=== PATIENT | male | born 1955 | race Caucasian/White ===

== ENCOUNTER → 2019-03-08 07:56 | Outpatient (BNVA) | payer SELFPAY | PROVIDERS: Family Provider Registered Nurse; PCP Registered Nurse; Visit Provider Registered Nurse | DX: E07.9 Disorder of thyroid, unspecified (principal) | CPT/HCPCS: 36415; 84443 ==

== ENCOUNTER → 2020-02-04 09:05 | Outpatient (BNVA) | payer SELFPAY | PROVIDERS: Family Provider Registered Nurse; PCP Registered Nurse; Visit Provider Registered Nurse | DX: E03.9 Hypothyroidism, unspecified (principal) | CPT/HCPCS: 80053; 80061; 84443; 85025 ==

== ENCOUNTER → 2020-05-27 08:24 | Outpatient (BNVA) | payer SELFPAY | PROVIDERS: Family Provider Registered Nurse; PCP Registered Nurse; Visit Provider Dermatology | DX: Z01.89 Encounter for other specified special examinations (principal) | CPT/HCPCS: 82607; 99398 ==

== ENCOUNTER → 2020-09-09 13:12 | Outpatient (BNVA) | payer OTHER, SELFPAY | PROVIDERS: Family Provider Registered Nurse; PCP Registered Nurse; Visit Provider Registered Nurse | DX: Z20.822 Contact with and (suspected) exposure to COVID-19 (principal) | CPT/HCPCS: 87635 ==

== ENCOUNTER → 2021-05-12 08:30 | Outpatient (BNVA) | payer OTHER, SELFPAY | PROVIDERS: Family Provider Registered Nurse; PCP Registered Nurse; Visit Provider Registered Nurse | DX: Z12.5 Encounter for screening for malignant neoplasm of prostate (principal); E03.9 Hypothyroidism, unspecified | CPT/HCPCS: 84443; G0103 ==

== ENCOUNTER → 2022-08-04 08:11 | Outpatient (BNVA) | payer MEDICARE, SELFPAY | PROVIDERS: Family Provider Registered Nurse; PCP Registered Nurse; Visit Provider Registered Nurse | DX: F41.9 Anxiety disorder, unspecified (principal); R53.83 Other fatigue; N40.0 Benign prostatic hyperplasia without lower urinary tract symptoms | CPT/HCPCS: 80053; 80061; 82306; 82607; 84153; 84403; 84443; 85025 ==

== ENCOUNTER 2023-04-27 09:30 | Outpatient (CLI) | payer MEDICARE, SELFPAY | END 2023-04-27 09:31 | disposition home or self-care (01) | LOC: SLEEP 04-28 12:05 | PROVIDERS: Family Provider Registered Nurse; PCP Registered Nurse; Visit Provider Registered Nurse | DX: G47.33 Obstructive sleep apnea (adult) (pediatric) (principal) | CPT/HCPCS: G0399 ==

== ENCOUNTER → 2023-05-12 08:56 | Outpatient (BNVA) | payer MEDICARE, SELFPAY | PROVIDERS: Family Provider Registered Nurse; PCP Registered Nurse; Visit Provider Registered Nurse | DX: N40.1 Benign prostatic hyperplasia with lower urinary tract symptoms (principal); R39.11 Hesitancy of micturition; E03.9 Hypothyroidism, unspecified; Z00.00 Encounter for general adult medical examination without abnormal findings; Z12.11 Encounter for screening for malignant neoplasm of colon; G47.33 Obstructive sleep apnea (adult) (pediatric); Z12.5 Encounter for screening for malignant neoplasm of prostate | CPT/HCPCS: 80053; 84153; 84443; 85025 ==

== ENCOUNTER → 2023-05-31 09:15 | Outpatient (BNVA) | payer MEDICARE, SELFPAY | PROVIDERS: Family Provider Registered Nurse; PCP Registered Nurse; Referring Provider Registered Nurse; Visit Provider Surgery | DX: Z12.11 Encounter for screening for malignant neoplasm of colon (principal) | CPT/HCPCS: 99024; 99203 ==

== ENCOUNTER → 2023-08-25 09:59 | Outpatient (BNVA) | payer MEDICARE, SELFPAY | PROVIDERS: Family Provider Registered Nurse; PCP Registered Nurse; Visit Provider Registered Nurse | DX: R53.83 Other fatigue (principal) | CPT/HCPCS: 84403; 85025; 86003; 86008; 86618; 86666; 86757 ==

== ENCOUNTER 2023-09-29 08:29 | Day surgery (SDC) | payer MEDICARE, SELFPAY ==
[2023-09-29 08:38] VITALS: BP 122/77; PULSE 60; RESP 16; TEMP 36.3; O2SAT 97
[2023-09-29 08:39] VITALS: BMI 28.1
--- NOTE | 2023-09-29 08:40 | W.PM.OPSFHP ---
Same Day Surgery H&P Indication for Procedure/HPI DATE OF PROCEDURE: September 29, 2023 CHIEF COMPLAINT/INDICATIONFOR SURGICAL PROCEDURE: need for screening colonoscopy PREOP DIAGNOSIS: need for screening colonoscopy PLANNED PROCEDURE: Operation Date: 09/29/23 09:35 Proposed Procedures p Colonoscopy 35588, G0121, Z12.11(Not Applicable) - Gianni Sena MD Medications/Allergies* Home Medications Medication Instructions Recorded Confirmed Type escitalopram oxalate 10 mg tablet 10 mg PO DAILY 09/27/23 09/29/23 History levothyroxine 112 mcg tablet 112 mcg PO DAILY 09/27/23 09/29/23 History tadalafil 5 mg tablet 5 mg PO DAILY 09/27/23 09/27/23 History Allergies/Adverse Reactions Allergy/AdvReac Type Severity Reaction Status Date / Time No Known Allergies Allergy Verified 05/31/23 09:19 Pertinent History/Comorbid Conditions* Medical History (Updated 08/04/22 @ 20:58 by MACEY Patterson) Hypothyroidism (acquired) Obesity (BMI 30-39.9) Family History (Updated 03/08/19 @ 08:17 by Dana Bernardo LPN) Heart disease Father Lung cancer Father Respiratory disease Mother Cancer Sister Social History Smoking and tobacco/nicotine status: never used tobacco/nicotine Alcohol intake: current Alcohol intake frequency: holidays/special occasions only Substance/Drug Use: never Lives independently: No Household members: spouse Housing: House Marital status: Current occupational status: employed Sexually active: Yes Do you think of yourself as: Straight/Heterosexual Current gender identity: Male Pertinent Exam Findings alert, oriented x 3, clear to auscultation bilaterally and regular rate & rhythm Recommendations Surgery/Procedure today Coding Level of Care Code Acute Code for Chg Fwd
--- NOTE | 2023-09-29 08:44 | ANES.PREANE2 ---
Pre-Anesthetic Assessment Height/Weight: Height 1.8 m Weight 91.626 kg Temp Pulse Resp BP Pulse Ox O2 Del Method 97.3 F L 60 16 122/77 97 Room Air 09/29/23 08:38 09/29/23 08:38 09/29/23 08:38 09/29/23 08:38 09/29/23 08:38 09/29/23 08:38 Preop Diagnosis: need for screening colonoscopy Operation Date: 09/29/23 09:35 Proposed Procedures p Colonoscopy 71281, G0121, Z12.11(Not Applicable) - Gianni Sena MD Familial anesthetic complications: none Was Beta Ana Paula taken within 24 hours: N/A Was Clonidine taken within 24 hours: N/A Last intake: Intake Last Liquid Date 09/28/23 Last Liquid Time 20:00 Last Solid Date 09/27/23 Last Solid Time 19:00 Social Alcohol (rare. special occasions) and No tobacco Exam alert, oriented x 3, clear to auscultation bilaterally and regular rate & rhythm Airway Submandibular: within normal limits Cervical ROM: within normal limits Mallampati: Class II Dentition: full Pulmonary Sleep Apnea CV/HEM None reported None reported Hepatic None reported GI None reported Metabolic Thyroid Disease [facility] [place] [facility] [place] None reported Neuropsych Anxiety Anesthetic Plan ASA status: 2 Anesthesia: MAC Medications/Allergies Home Medications Medication Instructions Recorded Confirmed Last Taken Type CPAP #1 ea 05/12/23 05/31/23 Unknown Rx doxycycline hyclate 100 mg capsule 100 mg PO BID 7 days #14 caps 09/13/23 09/29/23 09/28/23 Rx escitalopram oxalate 10 mg tablet 10 mg PO DAILY 09/27/23 09/29/23 09/28/23 History levothyroxine 112 mcg tablet 112 mcg PO DAILY 09/27/23 09/29/23 09/29/23 History tadalafil 5 mg tablet 5 mg PO DAILY 09/27/23 09/27/23 09/27/23 History Allergies Allergy/AdvReac Type Severity Reaction Status Date / Time No Known Allergies Allergy Verified 05/31/23 09:19 [facility] Anesthesia Medical History Hypothyroidism (acquired) Obesity (BMI 30-39.9) Family History Sister Cancer Father Heart disease Lung cancer Mother Respiratory disease Social History Smoking and tobacco/nicotine status: never used tobacco/nicotine Alcohol intake: current Alcohol intake frequency: holidays/special occasions only Substance/Drug Use: never Lives independently: No Household members: spouse Housing: House Marital status: Current occupational status: employed Sexually active: Yes Do you think of yourself as: Straight/Heterosexual Current gender identity: Male Data Anesthesia Cardiac Studies: No Data to Display
[2023-09-29] MEDS: sodium chloride 0.9% 1,000 ML 30 ML IV (08:54)
[2023-09-29 10:23] VITALS: BP 101/59; PULSE 55; RESP 16; TEMP 36.1; O2SAT 96
[2023-09-29 10:39] VITALS: BP 103/64; PULSE 60; RESP 18; O2SAT 94
--- NOTE | 2023-09-29 10:45 | ANE.PACU2 ---
Inpatient post-anesthesia follow up: Airway intact: Yes Vital signs: Temperature 97.0 F Pulse Rate 60 Respiratory Rate 18 Blood Pressure 103/64 Pulse Oximetry 94 Oxygen Delivery Me thod Room Air Oxygen Flow Rate Fraction of Inspir ed Oxygen Hydration adequate: Yes Nausea and vomiting: No Pain level: 1 Mental status: Baseline
== END 2023-09-29 10:48 | disposition home or self-care (01) ==
PROVIDERS: Family Provider Registered Nurse; PCP Registered Nurse; Visit Provider Surgery
PROC: 0DJD8ZZ Inspection of Lower Intestinal Tract, Via Natural or Artificial Opening Endoscopic (ICD-10-PCS; CPT 45378; principal; 2023-09-29 09:35)
DX: Z12.11 Encounter for screening for malignant neoplasm of colon (principal); K57.30 Diverticulosis of large intestine without perforation or abscess without bleeding; D12.8 Benign neoplasm of rectum; E03.9 Hypothyroidism, unspecified; E66.9 Obesity, unspecified; Z68.28 Body mass index [BMI] 28.0-28.9, adult; G47.30 Sleep apnea, unspecified
CPT/HCPCS: 45380; 88305; J2704; J3490; J7030

== ENCOUNTER → 2023-11-22 09:17 | Outpatient (BNVA) | payer MEDICARE, SELFPAY | PROVIDERS: Family Provider Registered Nurse; PCP Registered Nurse; Visit Provider Registered Nurse | DX: Z79.899 Other long term (current) drug therapy (principal); E03.9 Hypothyroidism, unspecified | CPT/HCPCS: 80053; 84443 ==

== ENCOUNTER → 2023-12-07 08:36 | Outpatient (BNVA) | payer MEDICARE, SELFPAY | PROVIDERS: Family Provider Registered Nurse; PCP Registered Nurse; Visit Provider Registered Nurse | DX: L98.9 Disorder of the skin and subcutaneous tissue, unspecified (principal) | CPT/HCPCS: 88305 ==

== ENCOUNTER 2023-12-26 12:22 | Outpatient (CLI) | payer MEDICARE, SELFPAY ==
--- NOTE | 2023-12-26 | ECG_ITS ---
[facility]26 Pat Name: Abraham Osuna Department: Room: Gender: Male Emd Teacher: : 1955 Requested By: Natalie Guillen Order Number: [id number] Vikas MD: Rubina Douglas M.D. Interpretive Statements PROCEDURE: At the baseline, the patient's blood pressure was 128/84 with a heart rate of 67. The baseline electrocardiogram showed normal sinus rhythm with normal ST-Ts.. The patient exercised for 10 minutes and 36 seconds on a standard [place] protocol. Patient attained a maximum heart rate of 143 beats per minute(92% of the maximum predicted heart rate) with a blood pressure at the peak exercise of 191/63 mm Hg. The EKG at the peak exercise revealed. Patient did not have any chest pain or any significant cardiac arrhythmias with the exercise During the recovery phase, there were no new changes. Blood pressure at the end of the recovery phase was 154/84 mm Hg with a heart rate of 80 per minute. CONCLUSION: 1. Normal EKG response to treadmill exercise 2. No exercise-induced chest pain or cardiac arrhythmia 3. Good exercise tolerance, attained a maximum of 13.5 METs 4. Hypertensive response to exercise Lung unchanged pre/post procedure; Intraprocedure shortess of breath; Symptoms resoled by discharge Electronically Signed On 12-28-2023 08:01:52 CDT by Rubina Douglas M.D. [email or web address]
[2023-12-26 12:36] VITALS: BMI 29.1
[2023-12-26 13:23] VITALS: BP 154/84; PULSE 80
== END 2023-12-26 12:23 | disposition home or self-care (01) ==
PROVIDERS: Family Provider Registered Nurse; PCP Registered Nurse; Visit Provider Registered Nurse
DX: R07.9 Chest pain, unspecified (principal); R06.02 Shortness of breath
CPT/HCPCS: 93017

== ENCOUNTER → 2024-01-02 11:15 | Outpatient (BNVA) | payer MEDICARE, SELFPAY | PROVIDERS: Family Provider Registered Nurse; PCP Registered Nurse; Referring Provider Registered Nurse; Visit Provider Dermatology | DX: L57.8 Other skin changes due to chronic exposure to nonionizing radiation (principal); D22.9 Melanocytic nevi, unspecified; L57.0 Actinic keratosis; D48.5 Neoplasm of uncertain behavior of skin; L90.5 Scar conditions and fibrosis of skin; L82.1 Other seborrheic keratosis; I78.8 Other diseases of capillaries | CPT/HCPCS: 11102; 17000; 99203 ==

== ENCOUNTER → 2024-01-17 11:12 | Outpatient (BNVA) | payer MEDICARE, SELFPAY | PROVIDERS: Family Provider Registered Nurse; PCP Registered Nurse; Visit Provider Dermatology | DX: D04.4 Carcinoma in situ of skin of scalp and neck (principal) | CPT/HCPCS: 17272 ==

== ENCOUNTER → 2024-07-02 09:13 | Outpatient (BNVA) | payer MEDICARE, SELFPAY | PROVIDERS: Family Provider Registered Nurse; PCP Registered Nurse; Visit Provider Nurse Practitioner Family | DX: D22.9 Melanocytic nevi, unspecified (principal); L81.4 Other melanin hyperpigmentation; Z08 Encounter for follow-up examination after completed treatment for malignant neoplasm; Z86.007 Personal history of in-situ neoplasm of skin; L57.0 Actinic keratosis; X32.XXXA Exposure to sunlight, initial encounter | CPT/HCPCS: 17000; 82306; 82607; 82746; 84443; 99213 ==

== ENCOUNTER → 2025-01-08 08:00 | Outpatient (BNVA) | payer MEDICARE, SELFPAY | PROVIDERS: Family Provider Registered Nurse; PCP Registered Nurse; Visit Provider Nurse Practitioner Family | DX: I78.8 Other diseases of capillaries (principal); L81.4 Other melanin hyperpigmentation; Z08 Encounter for follow-up examination after completed treatment for malignant neoplasm; Z86.007 Personal history of in-situ neoplasm of skin; L57.0 Actinic keratosis | CPT/HCPCS: 17000; 99213 ==